=== PATIENT | male | born 1995 | race Caucasian/White ===

== ENCOUNTER 2020-11-21 10:13 | Emergency (ER) | payer SELFPAY ==
[~2020-11-21] VITALS: Ht 167.6 cm; Wt 74.8 kg
[2020-11-21 10:15] VITALS: BP_SYST 140
[2020-11-21 11:18] VITALS: BP_SYST 140
[2020-11-22] MEDS ORDERED: PROPOFOL DRIP 100 ML IV ONE (09:06)
[2020-11-23] MEDS ORDERED: PROPOFOL DRIP 100 ML IV ONE ×2 (09:51→22:15)
[2020-11-23] MEDS ORDERED: NOREPINEPHRINE 4 MG/4 ML VIAL IV ONE ×2 (15:03→22:15)
== END 2020-11-21 11:19 ==
LOC: SED 10:13
DX: Z02.89 Encounter for other administrative examinations (principal); F17.200 Nicotine dependence, unspecified, uncomplicated
CPT/HCPCS: 99283; J2704